=== PATIENT | male | born 1975 | race Caucasian/White ===

== ENCOUNTER 2018-11-10 05:33 | Emergency (ER) | payer OTHER ==
[~2018-11-10] VITALS: Ht 185.4 cm; Wt 144.0 kg
[2018-11-10 06:20] LABS: HEMATOCRIT 42.9 % (39.0-50.0); HEMOGLOBIN 14.7 g/dl (14.0-18.0); IMMATURE GRANULOCYTES 0.2 % (0.0-5.0); MEAN CELL VOLUME 85.6 fL CALC (80.0-100.0); MEAN CORPUSCULAR HGB 29.3 pG CALC (26.0-32.0); MEAN CORPUSCULAR HGB CONC 34.3 g/L CALC (32.0-36.0); NEUT# 5.19 thou/uL (1.82-7.42); RED BLOOD COUNT 5.01 mill/uL (4.70-6.10); RED CELL DISTRI WIDTH 12.7 % (11.5-15.5)
[2018-11-10 06:30] LABS: ALBUMIN 4.3 g/dL (3.2-5.0); ALKALINE PHOSPHATASE 91 u/l (38-126); ANION GAP 14 (6-22 (CALC)); BILIRUBIN, TOTAL 0.6 mg/dL (0.0-1.4); BUN 16 mg/dL (9-20); BUN/CREATININE RATIO 17 (12-20 (CALC)); CARBON DIOXIDE 28 mmol/l (22-30); CHLORIDE 104 mmol/l (95-108); CREATININE 0.9 mg/dL (0.7-1.3); GFR > 60 ML/MIN (>=60 (CALC)); GFR FOR AFR.AMER. > 60 ML/MIN (>=60 (CALC)); POTASSIUM 3.5 mmol/l (3.5-5.1); SGOT/AST 35 u/l (17-59); SODIUM 143 mmol/l (137-146); TOTAL PROTEIN 7.1 g/dL (6.3-8.2)
[2018-11-10] MEDS ORDERED: ZPAK PO (07:18)
[2018-11-10 07:25] VITALS: BP 152/98
== END 2018-11-10 07:29 | disposition home or self-care (01) ==
LOC: ED 05:33
PROVIDERS: Emergency Medicine
DX: J02.0 Streptococcal pharyngitis (principal); I10 Essential (primary) hypertension; R05 Cough; Z91.14 Patient's other noncompliance with medication regimen

== ENCOUNTER 2023-01-26 04:36 | Emergency (ER) | payer SELFPAY ==
[2023-01-26] VITALS (24 sets, daily range): BP systolic 158–218; BP diastolic 106–158
[~2023-01-26] VITALS: Ht 185.4 cm; Wt 142.0 kg
[~2023-01-26 04:36] MED LIST: ZPAK PO
[2023-01-26 05:12] LABS: BASO% 0.5 % (0-3); EOS% 7.5 % (0-8); HEMATOCRIT 42.3 % (39.0-50.0); HEMOGLOBIN 13.9 g/dl (14.0-18.0); IMMATURE GRANULOCYTES 0.9 % (0.0-5.0); LYMPH% 26.3 % (15-41); MEAN CELL VOLUME 85.6 fL CALC (80.0-100.0); MEAN CORPUSCULAR HGB 28.1 pG CALC (26.0-32.0); MEAN CORPUSCULAR HGB CONC 32.9 g/dL CAL (32.0-36.0); MONO% 6.6 % (2-13); NEUT# 4.58 thou/uL (1.82-7.42); NEUT% 58.2 % (42-76); RED BLOOD COUNT 4.94 mill/uL (4.70-6.10); RED CELL DISTRI WIDTH 12.9 % (11.5-15.5)
[2023-01-26 05:27] LABS: ALBUMIN 4.6 g/dL (3.2-5.0); ALKALINE PHOSPHATASE 81 u/l (38-126); ANION GAP 12 (6-22 (CALC)); BILIRUBIN, TOTAL 0.5 mg/dL (0.2-1.3); BUN 20 mg/dL (9-20); BUN/CREATININE RATIO 18 (12-20 (CALC)); CARBON DIOXIDE 28 mmol/l (22-30); CHLORIDE 105 mmol/l (95-108); CREATININE 1.2 mg/dL (0.7-1.3); GFR FOR AFR.AMER. > 60 ML/MIN (>=60 (CALC)); GFR OTHER RACES > 60 ML/MIN (>=60 (CALC)); MAGNESIUM 2.2 mg/dL (1.6-2.3); POTASSIUM 3.7 mmol/l (3.5-5.1); SGOT/AST 36 u/l (17-59); SODIUM 142 mmol/l (137-146); TOTAL PROTEIN 7.9 g/dL (6.3-8.2)
[2023-01-26 05:28] LABS: D-DIMER 0.32 mg/L (0.19-0.60)
[2023-01-26 05:32] LABS: ACT PARTIAL THROMBO TIME 25.7 SECONDS (20.0-32.5); PROTHROMBIN TIME 9.6 SECONDS (9.0-12.5)
[2023-01-26 05:47] LABS: URINE BILIRUBIN - DIPSTICK NEGATIVE (NEGATIVE); URINE BLOOD DIPSTICK TRACE-INTACT (NEGATIVE); URINE COLOR YELLOW; URINE GLUCOSE - DIPSTICK NEGATIVE (NEGATIVE); URINE KETONE NEGATIVE (NEGATIVE); URINE LEUK ESTERASE NEGATIVE (NEGATIVE); URINE NITRITE - DIPSTICK NEGATIVE (Negative); URINE PH 6.5 (4.5-8.0); URINE PROTEIN - DIPSTICK NEGATIVE (NEG-TRACE); URINE UROBILINOGEN - DIPSTICK 0.2 E.U./dL (0.2)
[2023-01-26] MEDS ORDERED: STERAPRED DS10 MG PO (06:34)
[2023-01-26] MEDS ORDERED: LISINOP/HCTZ1 TA2 PO (06:34)
[2023-01-26] MEDS ORDERED: TOPROL XL50 MG PO (06:34)
== END 2023-01-26 06:58 | disposition home or self-care (01) | DRG 153 ==
LOC: ED 04:36
PROVIDERS: Family Medicine
DX: J31.0 Chronic rhinitis (principal); I10 Essential (primary) hypertension; E66.9 Obesity, unspecified; Z20.822 Contact with and (suspected) exposure to COVID-19

== ENCOUNTER 2023-04-28 17:39 | Emergency (ER) | payer SELFPAY ==
[~2023-04-28] VITALS: Ht 185.4 cm; Wt 167.8 kg
[~2023-04-28 17:39] MED LIST changes: +LISINOP/HCTZ1 TA2 PO; +STERAPRED DS10 MG PO; +TOPROL XL50 MG PO
[2023-04-28 18:00] VITALS: BP 152/112
[2023-04-28 18:31] VITALS: BP 176/110
[2023-04-28] MEDS ORDERED: NAPROXEN500 MG PO (19:00)
[2023-04-28] MEDS ORDERED: PREDNISONE10 MG PO (19:00)
[2023-04-28 19:28] VITALS: BP 115/80
== END 2023-04-28 19:16 | disposition home or self-care (01) | DRG 74 ==
LOC: ED 17:39
DX: G57.02 Lesion of sciatic nerve, left lower limb (principal); I10 Essential (primary) hypertension

== ENCOUNTER 2023-05-10 12:29 | Emergency (ER) | payer SELFPAY ==
[~2023-05-10] VITALS: Ht 185.4 cm; Wt 158.0 kg
[~2023-05-10 12:29] MED LIST changes: +NAPROXEN500 MG PO; +PREDNISONE10 MG PO
[2023-05-10 12:37] VITALS: BP 224/152
[2023-05-10 12:41] VITALS: BP 196/144
[2023-05-10] MEDS ORDERED: NEOPROFEN10 MG/ML PO (14:36)
[2023-05-10] MEDS ORDERED: METHOCARBAMOL500 MG PO (14:36)
[2023-05-10 14:46] VITALS: BP 196/122
[2023-05-10 14:52] VITALS: BP 194/133
== END 2023-05-10 14:57 | disposition home or self-care (01) | DRG 552 ==
LOC: ED 12:29
DX: M54.32 Sciatica, left side (principal); I10 Essential (primary) hypertension

== ENCOUNTER 2023-07-03 20:41 | Emergency (ER) | payer OTHER ==
[~2023-07-03] VITALS: Ht 185.4 cm; Wt 170.0 kg
[2023-07-03] VITALS (12 sets, daily range): BP systolic 168–200; BP diastolic 108–134
[~2023-07-03 20:41] MED LIST changes: +METHOCARBAMOL500 MG PO; +NEOPROFEN10 MG/ML PO
[2023-07-03 21:41] LABS: BASO% 0.4 % (0-3); EOS% 8.8 % (0-8); HEMATOCRIT 41.2 % (39.0-50.0); HEMOGLOBIN 13.3 g/dl (14.0-18.0); IMMATURE GRANULOCYTES 0.3 % (0.0-5.0); MEAN CELL VOLUME 86.9 fL CALC (80.0-100.0); MEAN CORPUSCULAR HGB 28.1 pG CALC (26.0-32.0); MEAN CORPUSCULAR HGB CONC 32.3 g/dL CAL (32.0-36.0); MONO% 4.9 % (2-13); NEUT# 4.25 thou/uL (1.82-7.42); NEUT% 57.6 % (42-76); RED BLOOD COUNT 4.74 mill/uL (4.70-6.10); RED CELL DISTRI WIDTH 13.3 % (11.5-15.5)
[2023-07-03 22:01] LABS: ALKALINE PHOSPHATASE 85 u/l (38-126); ANION GAP 10 (6-22 (CALC)); BILIRUBIN, TOTAL 0.3 mg/dL (0.2-1.3); BUN 17 mg/dL (9-20); BUN/CREATININE RATIO 15 (12-20 (CALC)); CARBON DIOXIDE 29 mmol/l (22-30); CHLORIDE 103 mmol/l (95-108); CREATININE 1.1 mg/dL (0.7-1.3); GFR FOR AFR.AMER. > 60 ML/MIN (>=60 (CALC)); GFR OTHER RACES > 60 ML/MIN (>=60 (CALC)); POTASSIUM 3.1 mmol/l (3.5-5.1); SGOT/AST 43 u/l (17-59); SODIUM 140 mmol/l (137-146); TOTAL PROTEIN 7.2 g/dL (6.3-8.2)
[2023-07-04] VITALS (9 sets, daily range): BP systolic 162–204; BP diastolic 106–131
[2023-07-04] MEDS ORDERED: LISINOPRIL10 MG PO (02:00)
== END 2023-07-04 02:22 | disposition home or self-care (01) | DRG 305 ==
LOC: ED 20:41
PROVIDERS: Emergency Medicine
DX: I10 Essential (primary) hypertension (principal); T46.5X6A Underdosing of other antihypertensive drugs, initial encounter; Z91.128 Patient's intentional underdosing of medication regimen for other reason; Z20.822 Contact with and (suspected) exposure to COVID-19

== ENCOUNTER 2024-04-27 10:13 | Emergency (ER) | payer SELFPAY ==
[2024-04-27] VITALS (11 sets, daily range): BP systolic 134–161; BP diastolic 90–114
[~2024-04-27] VITALS: Ht 185.4 cm; Wt 147.4 kg
[~2024-04-27 10:13] MED LIST changes: +ALLEGRA-D 2424 HOUR PO; +CYCLOBENZAPRINE10 MG PO; +HYDROCODONE POLISTIR PO; +LISINOPRIL10 MG PO; +PREDNISONE20 MG PO
[2024-04-27 10:37] LABS: BASO% 0.5 % (0-3); EOS% 2.3 % (0-8); HEMATOCRIT 42.6 % (39.0-50.0); HEMOGLOBIN 13.8 g/dl (14.0-18.0); IMMATURE GRANULOCYTES 0.5 % (0.0-5.0); LYMPH% 24.8 % (15-41); MEAN CELL VOLUME 87.3 fL CALC (80.0-100.0); MEAN CORPUSCULAR HGB 28.3 pG CALC (26.0-32.0); MEAN CORPUSCULAR HGB CONC 32.4 g/dL CAL (32.0-36.0); MONO% 5.6 % (2-13); NEUT# 5.74 thou/uL (1.82-7.42); NEUT% 66.3 % (42-76); RED BLOOD COUNT 4.88 mill/uL (4.70-6.10); RED CELL DISTRI WIDTH 13.7 % (11.5-15.5)
[2024-04-27 10:53] LABS: ALBUMIN 4.5 g/dL (3.2-5.0); ALKALINE PHOSPHATASE 94 u/l (38-126); ANION GAP 11 (6-22 (CALC)); BUN 30 mg/dL (9-20); BUN/CREATININE RATIO 24 (12-20 (CALC)); CARBON DIOXIDE 26 mmol/l (22-30); CHLORIDE 107 mmol/l (95-108); CHOLESTEROL HDL RATIO 3.4 (<4.4 (CALC)); CREATININE 1.3 mg/dL (0.7-1.3); ESTIMATED GFR 68 ML/MIN (>=90 (CALC)); POTASSIUM 3.5 mmol/l (3.5-5.1); SGOT/AST 45 u/l (17-59); SODIUM 140 mmol/l (137-146); TOTAL PROTEIN 7.8 g/dL (6.3-8.2)
[2024-04-27 10:55] LABS: BILIRUBIN, TOTAL 0.6 mg/dL (0.2-1.3)
[2024-04-27 10:59] LABS: INTERNATIONAL NORMALIZED RATIO 1.1 RATIO (0.7-1.3)
[2024-04-27 11:00] LABS: PROTHROMBIN TIME 10.5 SECONDS (9.0-12.5)
[2024-04-27] MEDS ORDERED: ASPIRIN 81 MG/TAB PO ONE (11:05)
[2024-04-27 11:21] LABS: URINE BLOOD DIPSTICK Negative (NEGATIVE); URINE GLUCOSE - DIPSTICK Negative (NEGATIVE); URINE KETONE Negative (NEGATIVE); URINE LEUK ESTERASE Negative (NEGATIVE); URINE NITRITE - DIPSTICK Negative (Negative); URINE PROTEIN - DIPSTICK 30 mg/dL (NEG-TRACE); URINE SPECIFIC GRAVITY 1.025
[2024-04-27 11:23] LABS: URINE COLOR Yellow
[2024-04-27 11:28] LABS: URINE HYALINE CAST FEW lpf (NONE-RARE); URINE MUCUS MODERATE hpf (NONE-FEW)
[2024-04-27] MEDS ORDERED: ATORVASTATIN CA80 MG PO (12:23)
== END 2024-04-27 13:08 | disposition left against medical advice (07) | DRG 149 ==
LOC: ED 10:13
PROVIDERS: Family Medicine
DX: R42 Dizziness and giddiness (principal); R53.1 Weakness; I10 Essential (primary) hypertension; E66.9 Obesity, unspecified; Z53.29 Procedure and treatment not carried out because of patient's decision for other reasons; Z86.16 Personal history of COVID-19
CPT/HCPCS: Q9967

== ENCOUNTER 2025-01-06 16:41 | Emergency (ER) | payer SELFPAY ==
[~2025-01-06] VITALS: Ht 185.4 cm; Wt 142.0 kg
[~2025-01-06 16:41] MED LIST changes: +ATORVASTATIN CA80 MG PO
[2025-01-06] MEDS ORDERED: KETOROLAC TROMETHAMINE 30 MG/ML SDV IV ONE (18:00)
[2025-01-06] MEDS ORDERED: SODIUM CHLORIDE 0.9% 1,000 ML IV ONE (18:00)
[2025-01-06] MEDS ORDERED: MORPHINE SULFATE 4 MG/ML VIAL IV ONE (18:00)
[2025-01-06 18:17] LABS: BASO% 0.5 % (0-3); HEMATOCRIT 41.8 % (39.0-50.0); HEMOGLOBIN 13.4 g/dl (14.0-18.0); IMMATURE GRANULOCYTES 0.2 % (0.0-5.0); LYMPH% 22.7 % (15-41); MEAN CELL VOLUME 87.3 fL CALC (80.0-100.0); MEAN CORPUSCULAR HGB CONC 32.1 g/dL CAL (32.0-36.0); MONO% 5.7 % (2-13); NEUT# 5.68 thou/uL (1.82-7.42); NEUT% 67.9 % (42-76); RED BLOOD COUNT 4.79 mill/uL (4.70-6.10); RED CELL DISTRI WIDTH 13.7 % (11.5-15.5)
[2025-01-06 18:19] LABS: URINE BLOOD DIPSTICK Trace-intact (NEGATIVE); URINE GLUCOSE - DIPSTICK 500 mg/dL (NEGATIVE); URINE KETONE 15 mg/dL (NEGATIVE); URINE LEUK ESTERASE Negative (NEGATIVE); URINE PH 5.5 (4.5-8.0); URINE PROTEIN - DIPSTICK 30 mg/dL (NEG-TRACE); URINE SPECIFIC GRAVITY 1.025; URINE UROBILINOGEN - DIPSTICK 0.2 E.U./dL (0.2)
[2025-01-06 18:22] LABS: URINE COLOR Dark yellow; URINE NITRITE - DIPSTICK Positive (Negative)
[2025-01-06 18:32] LABS: URINE MUCUS MODERATE hpf (NONE-FEW); URINE WBC 0-2 WBC/hpf (0-5)
[2025-01-06 18:33] LABS: URINE BACTERIA RARE hpf; URINE HYALINE CAST MODERATE lpf (NONE-RARE)
[2025-01-06 18:34] LABS: URINE CALCIUM OXALATE CRYSTALS MODERATE lpf
[2025-01-06 18:35] LABS: ALBUMIN 4.3 g/dL (3.2-5.0); BILIRUBIN, TOTAL 0.7 mg/dL (0.2-1.3); CREATININE 1.2 mg/dL (0.7-1.3); POTASSIUM 3.9 mmol/l (3.5-5.1); TOTAL PROTEIN 7.2 g/dL (6.3-8.2)
[2025-01-06] MEDS ORDERED: SULFAMETHOXAZOLE W/TRIMETHOPRI 1 COMBO TAB PO ONE ×2 (18:40→19:50)
[2025-01-06 19:09] VITALS: BP 164/102
[2025-01-06] MEDS ORDERED: MOTRIN800 MG PO (19:53)
[2025-01-06] MEDS ORDERED: BACTRIM DS1 TAB PO (19:53)
== END 2025-01-06 20:06 | disposition home or self-care (01) | DRG 690 ==
LOC: ED 16:41
PROVIDERS: Emergency Medicine; Nurse Practitioner
DX: N39.0 Urinary tract infection, site not specified (principal); I10 Essential (primary) hypertension